=== PATIENT | male | born 1990 | race Asian ===

== ENCOUNTER → 2020-09-17 | Outpatient (CLI) | payer OTHER ==
[2020-09-17 17:17] LABS: BASOPHIL % 0.6 % (0.2-1.5); PLATELET COUNT 355 x10^3mcL (152-348); RED CELL DISTRIBUTION WIDTH 14.5 % (12.1-16.2)
[2020-09-17 17:34] LABS: UA SPECIFIC GRAVITY <=1.005 (1.005-1.035); microscopic required? YES; urine erythrocyte 1+ (NEGATIVE)
[2020-09-17 17:45] LABS: rbc morphology (normal/abnorm) NORMAL (NORMAL)
== END ==
LOC: LB 16:40
PROVIDERS: ATTEND Student in an Organized Health Care Education/Training Program
DX: N30.90 Cystitis, unspecified without hematuria (principal); R31.9 Hematuria, unspecified; N10 Acute pyelonephritis
CPT/HCPCS: 87491; 87591

== ENCOUNTER → 2020-09-23 | Outpatient (CLI) | payer OTHER | LOC: CT 14:45 | PROVIDERS: ATTEND Student in an Organized Health Care Education/Training Program | PROC: BW21ZZZ Computerized Tomography (CT Scan) of Abdomen and Pelvis (ICD-10-PCS; principal; 2020-09-23) | DX: N20.0 Calculus of kidney (principal) ==